=== PATIENT | male | born 1965 | race Caucasian/White ===

== ENCOUNTER → 2018-03-26 | Outpatient (CLI) | payer OTHER ==
[~2018-03-26] MED LIST: AZIT600 PO; DIPH25TA28 PO; GLUCTAB PO; GUAI600; LEVEMIR SC; LISI-363 PO; LORTA5 PO; NOVOLOGSS; PRAV20TA67 PO; ST JTAB PO
[2018-03-26 09:48] LABS: AUTOMATED NEUTROPHIL # 7.1 TH/MM3 (1.8-7.7); BASOPHIL # 0.1 TH/MM3 (0-0.2); BASOPHIL % 0.7 % (0.0-2.0); EOSINOPHIL # 0.2 TH/MM3 (0-0.4); EOSINOPHIL % 2.3 % (0.0-4.0); HEMATOCRIT 52.9 % (39.0-51.0); HEMOGLOBIN 18.3 GM/DL (13.0-17.0); LYMPH % 23.8 % (9.0-44.0); LYMPHOCYTE # 2.5 TH/MM3 (1.0-4.8); MEAN CORPUSCULAR HEMOGLOBIN 30.4 PG (27.0-34.0); MEAN CORPUSCULAR HGB CONC 34.5 % (32.0-36.0); MEAN PLATELET VOLUME 7.5 FL (7.0-11.0); MONO % 6.8 % (0.0-8.0); MONOCYTE # 0.7 TH/MM3 (0-0.9); NEUT % 66.4 % (16.0-70.0); PLATELET COUNT 247 TH/MM3 (150-450); RED BLOOD COUNT 6.01 MIL/MM3 (4.50-5.90); RED CELL DISTRIBUTION WIDTH 13.8 % (11.6-17.2); WHITE BLOOD COUNT 10.6 TH/MM3 (4.0-11.0)
[2018-03-26 09:58] LABS: BICARBONATE 19.8 MEQ/L (21.0-32.0); CALCIUM 8.9 MG/DL (8.5-10.1); CREATININE 1.1 MG/DL (0.60-1.30)
--- NOTE | 2018-03-26 15:22 | EKG ---
Date Performed: 03/26/2018 Time Performed: 09:30:14 PTAGE: 52 years EKG: Sinus rhythm . Rightward axis Since the previous tracing, no significant change noted Borderline ECG PREVIOUS TRACING : 12/01/2013 07.08 DOCTOR: Pamela Jacobsen Interpretating Date/Time 03/26/2018 15:21:50
== END ==
LOC: CLAB 08:29
PROVIDERS: ATTEND Orthopaedic Surgery Sports Medicine
DX: Z01.818 Encounter for other preprocedural examination (principal); G56.03 Carpal tunnel syndrome, bilateral upper limbs; R94.31 Abnormal electrocardiogram [ECG] [EKG]
CPT/HCPCS: 36415; 80048; 85025; 93005

== ENCOUNTER 2018-07-30 13:39 | Observation (INO) ==
--- NOTE | 2018-07-30 16:09 | ED ---
HPI General Chief Complaint: Chest Pain Stated Complaint: Multiple Complaints Time Seen by Provider: 07/30/18 15:32 Source: patient Mode of arrival: ambulatory Limitations: no limitations History of Present Illness HPI narrative: 52-year-old male with a history of diabetes mellitus type 2, chronic chest pain presents to the emergency department with chronic chest pain , occasional dizziness, diaphoresis that has worsened in the last 3-4 days. He describes his dizziness as lightheadedness that increases with moving and decreases with sitting. He currently denies shortness of breath although occasionally does feel short of breath with his chronic chest pain. Denies nausea, vomiting or diarrhea. Patient states he had a nuclear stress test, echocardiogram 2016 but does not know the results. He had a heart catheterization 10 years ago. Is not currently follow cardiology. Patient admits to smoking tobacco but denies hyperlipidemia hypertension. No known family history of cardiac problems. He does not take aspirin on a daily basis. Related Data Home Medications Medication Instructions Recorded Confirmed glipizide 07/30/18 hydrocodone-acetaminophen 1 tab PO Q4H PRN 07/30/18 07/30/18 Allergies Allergy/AdvReac Type Severity Reaction Status Date / Time No Known Allergies Allergy Verified 07/30/18 16:26 Review of Systems ROS: all other systems reviewed are negative [facility] Medical History Medical History Arthritis (Acute) Chronic back pain (Acute) Diabetes mellitus (Acute) Social History Social History Substance History: No History of Abuse Second Hand Smoke Exposure: No Smoking Status: Current every day smoker Tobacco Type: Cigarettes How Often Do You Have a Drink Containing Alcohol: 2 to 3 times a week Recent Travel in [facility] within the Last 8 Weeks: No Recent Out of Country Travel within the Last 8 Weeks: No Exam Narrative Exam Narrative: GENERAL: WD, WN in NAD SKIN: Focused skin assessment warm/dry. HEAD: Atraumatic. Normocephalic. EYES: Pupils equal and round. No scleral icterus. No injection or drainage. ENT: No nasal bleeding or discharge. Mucous membranes pink and moist. NECK: Trachea midline. No JVD. CARDIOVASCULAR: Regular rate and rhythm. No murmur appreciated. No TTP to chest wall. RESPIRATORY: No accessory muscle use. Clear to auscultation. Breath sounds equal bilaterally. GASTROINTESTINAL: Abdomen soft, non-tender, nondistended. Hepatic and splenic margins not palpable. MUSCULOSKELETAL: No obvious deformities. No clubbing. No cyanosis. No edema. No tenderness palpation of the calves NEUROLOGICAL: Awake and alert. No obvious cranial nerve deficits. Motor grossly within normal limits. Normal speech. PSYCHIATRIC: Appropriate mood and affect; insight and judgment normal. Course Initial Documented Vital Signs Temperature 99.0 F 07/30/18 13:43 Pulse Rate 75 07/30/18 13:43 Respiratory Rate 14 07/30/18 13:43 Blood Pressure 178/79 H 07/30/18 13:43 Pulse Oximetry 98 07/30/18 13:43 Last Documented Vital Signs Temperature 83 F L 07/30/18 20:00 Pulse Rate 98 H 07/30/18 20:00 Respiratory Rate 18 07/30/18 20:00 Blood Pressure 174/93 H 07/30/18 20:00 Pulse Oximetry 99 07/30/18 20:00 Clinical Decision Support HEART Score Questions History: Slightly suspicious EKG: Normal Age: 45-64 years Risk Factors: 3 or more Risk Factors or Hx of Atherosclerotic Disease Initial Troponin: Normal Limit Heart Score HEART Score: 3 Medical Decision Making [facility] Narrative Medical decision making narrative: 52-year-old male presents to the emergency department for evaluation of chest pain, general fatigue has been present for several days. Vital signs are stable. EKG demonstrates sinus rhythm without STEMI changes. Aspirin and nitro administered. Nitro has given patient relief from his pain. Labs are stable. Initial troponin and CK negative. Unfortunately, I do not have records from [facility] regarding this patient's workup for ACS rule out. Based off of history and physical, will admit patient to the chest pain center, r/o ACS. Medical Screen Exam Complete: Yes Emergency Medical Condition: Yes Differential Diagnosis Differential Diagnosis: ACS, atypical chest pain , angina Lab Data Result diagrams: 07/30/18 15:21 07/30/18 15:21 Lab Results 07/30/18 07/30/18 07/30/18 Range/Units 15:21 15:21 15:21 WBC 9.2 (4.0-11.0) th/mm3 RBC 4.93 (4.50-5.90) mil/mm3 Hgb 16.3 (13.0-17.0) gm/dL Hct 45.1 (39.0-51.0) % MCV 91.4 (80.0-100.0) fL MCH 33.1 (27.0-34.0) pg MCHC 36.2 H (32.0-36.0) % RDW 13.4 (11.6-17.2) % Plt Count 226 (150-450) th/mm3 MPV 7.1 (7.0-11.0) fL Prelim Diff (Auto) Slide review pending Neut % (Auto) 49.2 (16.0-70.0) % Lymph % (Auto) 36.6 (9.0-44.0) % [place] % (Auto) 9.2 H (0.0-8.0) % Eos % (Auto) 3.9 (0.0-4.0) % Baso % (Auto) 1.1 (0.0-2.0) % Neut # (Auto) 4.5 (1.8-7.7) th/mm3 Lymph # (Auto) 3.4 (1.0-4.8) th/mm3 [place] # (Auto) 0.8 (0.0-0.9) th/mm3 Eos # (Auto) 0.4 (0.0-0.4) th/mm3 Baso # (Auto) 0.1 (0.0-0.2) th/mm3 WBC Differential . Diff Scan Auto diff confirmed Differential Comment . PT 9.8 (9.8-11.6) sec INR 1.0 Ratio APTT 26.1 (24.3-30.1) sec Sodium 142 (136-145) meq/L Potassium 4.0 (3.5-5.1) meq/L Chloride 105 (98-107) meq/L Carbon Dioxide 25.0 (21.0-32.0) meq/L Anion Gap 12 (5-15) meq/L BUN 23 H (7-18) mg/dL Creatinine 1.21 (0.60-1.30) mg/dL Estimated GFR 62 L (>89) mL/min Random Glucose 149 H (74-106) mg/dL Calcium 8.6 (8.5-10.1) mg/dL Total Bilirubin 0.5 (0.2-1.0) mg/dL AST 18 (15-37) U/L ALT 29 (12-78) U/L Alkaline Phosphatase 101 (45-117) U/L Total Creatine Kinase 296 (39-308) U/L CK-MB (CK-2) 2.2 (0.5-3.6) ng/mL Troponin I Less than 0.02 L (0.02-0.05) ng/mL Total Protein 7.6 (6.4-8.2) g/dL Albumin 4.1 (3.4-5.0) g/dL 07/30/18 Range/Units 19:15 WBC (4.0-11.0) th/mm3 RBC (4.50-5.90) mil/mm3 Hgb (13.0-17.0) gm/dL Hct (39.0-51.0) % MCV (80.0-100.0) fL MCH (27.0-34.0) pg MCHC (32.0-36.0) % RDW (11.6-17.2) % Plt Count (150-450) th/mm3 MPV (7.0-11.0) fL Prelim Diff (Auto) Neut % (Auto) (16.0-70.0) % Lymph % (Auto) (9.0-44.0) % [place] % (Auto) (0.0-8.0) % Eos % (Auto) (0.0-4.0) % Baso % (Auto) (0.0-2.0) % Neut # (Auto) (1.8-7.7) th/mm3 Lymph # (Auto) (1.0-4.8) th/mm3 [place] # (Auto) (0.0-0.9) th/mm3 Eos # (Auto) (0.0-0.4) th/mm3 Baso # (Auto) (0.0-0.2) th/mm3 WBC Differential Diff Scan Differential Comment PT (9.8-11.6) sec INR Ratio APTT (24.3-30.1) sec Sodium (136-145) meq/L Potassium (3.5-5.1) meq/L Chloride (98-107) meq/L Carbon Dioxide (21.0-32.0) meq/L Anion Gap (5-15) meq/L BUN (7-18) mg/dL Creatinine (0.60-1.30) mg/dL Estimated GFR (>89) mL/min Random Glucose (74-106) mg/dL Calcium (8.5-10.1) mg/dL Total Bilirubin (0.2-1.0) mg/dL AST (15-37) U/L ALT (12-78) U/L Alkaline Phosphatase (45-117) U/L Total Creatine Kinase 244 (39-308) U/L CK-MB (CK-2) (0.5-3.6) ng/mL Troponin I Less than 0.02 L (0.02-0.05) ng/mL Total Protein (6.4-8.2) g/dL Albumin (3.4-5.0) g/dL Imaging Data Radiologist's impression: Chest X-Ray 07/30/18 15:49 CONCLUSION: 1. No acute cardiopulmonary disease. Discharge Plan Discharge Disposition Patient Disposition: 30 Still Patient Discharge Condition Condition: Stable Discharge Details Diagnosis: Atypical chest pain Physicians Team ED Provider: Blayne Wills ED Midlevel Provider: Sharmila Anton Primary Care Provider: Malathi Rendon Attending Provider: Arash Aguirre Status ED Status: Left Department Discharge Information Discharge Date/Time: 07/30/18 17:54
[2018-07-30 16:12] LABS: Baso # (Auto) 0.1 th/mm3 (0.0-0.2); Baso % (Auto) 1.1 % (0.0-2.0); Eos # (Auto) 0.4 th/mm3 (0.0-0.4); Eos % (Auto) 3.9 % (0.0-4.0); Hematocrit 45.1 % (39.0-51.0); Hemoglobin 16.3 gm/dL (13.0-17.0); Lymph # (Auto) 3.4 th/mm3 (1.0-4.8); Lymph % (Auto) 36.6 % (9.0-44.0); Mean Corpuscular Hemoglobin 33.1 pg (27.0-34.0); Mean Corpuscular Volume 91.4 fL (80.0-100.0); Mean Platelet Volume 7.1 fL (7.0-11.0); Mono # (Auto) 0.8 th/mm3 (0.0-0.9); Mono % (Auto) 9.2 % (0.0-8.0); Neut # (Auto) 4.5 th/mm3 (1.8-7.7); Neut % (Auto) 49.2 % (16.0-70.0); Platelet Count 226 th/mm3 (150-450); Red Blood Count 4.93 mil/mm3 (4.50-5.90); Red Cell Distribution Width 13.4 % (11.6-17.2); White Blood Count 9.2 th/mm3 (4.0-11.0)
[2018-07-30 16:15] LABS: Mean Corpuscular HGB Conc 36.2 % (32.0-36.0)
--- NOTE | 2018-07-30 16:24 | XR ---
EXAM DATE: 07/30/2018 3:49 PM EDT AGE/SEX: 52 years / Male INDICATIONS: Left sided chest pain. CLINICAL DATA: This is the patient's initial encounter. Patient reports that signs and symptoms have been present for 2 days and indicates a pain score of 6/10. MEDICAL/SURGICAL HISTORY: None. None. COMPARISON: [facility], CT CHEST W/O CONTRAST, 01/23/2018. . FINDINGS: A single AP view of the chest demonstrates the lungs to be symmetrically aerated without evidence of mass, infiltrate or effusion. The cardiomediastinal contours are unremarkable. Osseous structures a re intact. CONCLUSION: 1. No acute cardiopulmonary disease. Electronically signed by: Jameson Weber MD 07/30/2018 4:22 PM EDT
[2018-07-30 16:27] LABS: Activated Partial Thrombo Time 26.1 sec (24.3-30.1); Prothrombin Time 9.8 sec (9.8-11.6)
[2018-07-30 16:32] LABS: Albumin 4.1 g/dL (3.4-5.0); Anion Gap 12 meq/L (5-15); Aspartate Aminotransferase 18 U/L (15-37); Blood Urea Nitrogen 23 mg/dL (7-18); Calcium 8.6 mg/dL (8.5-10.1); Chloride 105 meq/L (98-107); Glomerular Filtration Rate 62 mL/min (>89); Glucose,Random 149 mg/dL (74-106); Sodium 142 meq/L (136-145)
[2018-07-30 16:36] LABS: Alanine Aminotransferase 29 U/L (12-78); Alkaline Phosphatase 101 U/L (45-117); Creatine Kinase 296 U/L (39-308); Total Protein 7.6 g/dL (6.4-8.2)
[2018-07-30 16:49] LABS: Creatine Kinase MB 2.2 ng/mL (0.5-3.6)
[2018-07-30] MEDS ORDERED: Acetaminophen 500 MG Tablet PO PRN (16:52)
[2018-07-30 20:00] LABS: Creatine Kinase 244 U/L (39-308)
[2018-07-30] MEDS: Morphine Sulfate Inj 2 MG/ML Vial IV.PUSH PRN (23:13)
[2018-07-31] MEDS: Morphine Sulfate Inj 2 MG/ML Vial IV.PUSH PRN (03:21)
--- NOTE | 2018-07-31 10:46 | P.HPCA ---
History of Present Illness Primary Care Physician: Malathi Rendon Chief Complaint: Chest pain History of Present Illness: This is a 52-year-old male with history of diabetes, hyperlipidemia, tobacco abuse, and obesity that presents to ED after request of a physician at the clinic for further evaluation. He states that for last 2 days he has been sweating a lot. Regardless of if he is outside or if he is inside. 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 Was advised by his coworker to get checked out by the nurse for the city. He went to the nurse and was then advised to go to the wellness center. While he was there he states that he was told that his blood pressure dropped more than 30 points when he went from a seated to standing position. At that point they stated he should go to the hospital. States that he was having chest pain on and off yesterday. States is not unusual. States he has chronic chest pain and has had this for more than 10 years. Usually has 3-4 episodes a month. Yesterday's episodes were intermittent each lasting less than 10 minutes but occurred 3-4 times. States that he has had this evaluated in the past. States he had a normal cardiac catheterization at [facility] about 10 years ago. He also states that he had a normal nuclear stress test sometime last year with [facility]. States he really was not concerned about his chest pain. Was more concerned about why he was sweating but again was prompted to come to the ED because his blood pressure changes. Denies history of hypertension. He was on lisinopril when he was first diagnosed with diabetes while hospitalized but states his PCP took him off lisinopril stating he was needed for his blood pressure. Currently has no complaints. Diabetes, hyperlipidemia, tobacco abuse, obesity. Denies hypertension and known CAD. Patient smokes about 1 pack of cigarettes daily for 40 years. Denies alcohol or illicit drug use. Denies family history of CAD. - Diagnosis (1) Chest pain (2) Diabetes (3) Hyperlipidemia (4) Obesity (5) Tobacco abuse Review of Systems General: Patient denies fevers, chills, and recent travel. HEENT: Patient denies headache, sore throat, difficulty swallowing. Cardiovascular: Has the chest discomfort as mentioned above. Denies sensation of heart beating rapidly or irregularly. No syncope. States he was sweating a lot. Respiratory: Denies shortness of breath or inspirational chest discomfort. Denies coughing wheezing or hemoptysis. GI: Patient denies nausea, vomiting, diarrhea, abdominal pain, bloody stools. Musculoskeletal: Patient denies joint pain or edema. Denies calf pain or edema. Neurovascular: Patient denies numbness, tingling, weakness in extremities. Denies headache. Endocrine: Denies polyuria and polydipsia. Hematologic: Denies easy bruising. Skin: Denies rash or itching. PMFSH - History History Provided By: Patient - Medical History Medical History: Medical History (Last Updated 07/30/18 @ 16:23 by Portia Booker RN) Arthritis Chronic back pain Diabetes mellitus - Tobacco History Second Hand Smoke Exposure: No Tobacco Use In Past 30 Days: Yes Smoking Status: Current every day smoker Tobacco Type: Cigarettes - Alcohol History How Often Do You Have a Drink Containing Alcohol: 2 to 3 times a week - Substance Use History Substance History: No History of Abuse - Substance Use Type Marijuana Status: Active Route Used: Inhalation - Travel History Recent Travel in the [place] Within the Last 8 Weeks: No Recent Travel Out of the Country Within the Last 8 Weeks: No - Immunization History Tetanus Immunization: >5 Years Medications and Allergies Active Medications: Active Medications Acetaminophen (Tylenol) 500 mg PO Q4H PRN PRN Reason: HEADACHE Hydrocodone Bitart/Acetaminophen ([place] 7.5/325) 1 tab PO Q4H PRN PRN Reason: PAIN SCALE 1 TO 7 Last Admin: 07/31/18 08:36 Dose: 1 tab Insulin Human Regular (Novolin R Correctional Sugar Inj) 0 units SQ ACHS ANAYA; Protocol Morphine Sulfate (Morphine Inj) 2 mg IV.PUSH Q4H PRN PRN Reason: PAIN SCALE GREATER THAN 5 Last Admin: 07/31/18 03:21 Dose: 2 mg Ondansetron HCl (Zofran Inj) 4 mg IV.PUSH Q6H PRN PRN Reason: NAUSEA Sodium Chloride (Ns Flush) 2 ml IV.FLUSH UNSCH PRN PRN Reason: FLUSH AFTER USING IV ACCESS Sodium Chloride (Ns Flush) 2 ml IV.FLUSH BID ANAYA Last Admin: 07/31/18 08:36 Dose: 2 ml Sodium Chloride (Ns Flush) 2 ml IV.FLUSH PRN PRN PRN Reason: FLUSH AFTER USING IV ACCESS Allergies Allergy/AdvReac Type Severity Reaction Status Date / Time No Known Allergies Allergy Verified 07/30/18 16:26 Home Medications Medication Instructions Recorded Confirmed Type glipizide 07/30/18 History hydrocodone-acetaminophen 1 tab PO Q4H PRN 07/30/18 07/30/18 History Exam Vital signs: Vital Signs 07/30/18 13:43 07/30/18 16:22 07/30/18 18:29 Temperature 99.0 F 98.1 F Pulse Rate 75 57 L 58 L Respiratory Rate 14 18 16 Blood Pressure 178/79 H 138/75 181/85 H Pulse Oximetry 98 99 99 07/30/18 20:00 07/30/18 23:44 07/31/18 03:10 Temperature 83 F L 98.4 F 98.2 F Pulse Rate 75 63 62 Respiratory Rate 18 18 20 Blood Pressure 174/93 H 135/73 133/65 Pulse Oximetry 99 96 97 07/31/18 08:00 07/31/18 09:21 07/31/18 09:22 Temperature 97.7 F Pulse Rate 52 L 56 L 72 Respiratory Rate 18 16 18 Blood Pressure 174/84 H 175/86 H 162/78 H Pulse Oximetry 98 95 98 07/31/18 09:23 Temperature Pulse Rate 74 Respiratory Rate 18 Blood Pressure 163/84 H Pulse Oximetry 97 Intake & Output 07/30/18 07/31/18 07/31/18 18:59 06:59 18:59 Weight 142.882 kg 142.882 kg Other: # Voids 3 Date of Last Bowel Movement 07/29/18 Weight On Admission 142.882 kg Narrative: GENERAL: This is a well-nourished, well-developed patient, in no apparent distress. Patient speaks in clear complete sentences. Patient is pleasant. HEENT: Head is atraumatic and normocephalic. Neck is supple without lymphadenopathy and trachea is midline. No JVD or carotid bruits. CARDIOVASCULAR: Regular rate and rhythm without murmurs, gallops, or rubs. RESPIRATORY: Clear to auscultation. Breath sounds equal bilaterally. No wheezes , rales, or rhonchi. Chest wall is nontender. No use of accessory muscles. GASTROINTESTINAL: Abdomen is nontender, nondistended. Abdomen soft. No obvious pulsatile mass or bruit. No CVA tenderness. Strong femoral pulses bilaterally. Normal bowel sounds in all quadrants. MUSCULOSKELETAL: Patient is moving upper and lower extremities freely. No calf tenderness or edema, no Homans sign. Strong pulses in upper and lower extremities. NEUROLOGICAL: Patient is alert and oriented. Cranial nerves 2-12 are grossly intact. No focal deficits and speech is clear. SKIN: No rash and turgor is normal. Results 07/30/18 15:21 07/30/18 15:21 Cardiac Enzymes 07/30/18 07/30/18 07/30/18 Range/Units 15:21 19:15 22:00 AST 18 (15-37) U/L CK-MB (CK-2) 2.2 (0.5-3.6) ng/mL Troponin I Less than 0.02 L Less than 0.02 L Less than 0.02 L (0.02-0.05) ng/mL Coagulation 07/30/18 Range/Units 15:21 PT 9.8 (9.8-11.6) sec APTT 26.1 (24.3-30.1) sec CBC 07/30/18 Range/Units 15:21 WBC 9.2 (4.0-11.0) th/mm3 RBC 4.93 (4.50-5.90) mil/mm3 Hgb 16.3 (13.0-17.0) gm/dL Hct 45.1 (39.0-51.0) % Plt Count 226 (150-450) th/mm3 Neut # (Auto) 4.5 (1.8-7.7) th/mm3 Lymph # (Auto) 3.4 (1.0-4.8) th/mm3 [place] # (Auto) 0.8 (0.0-0.9) th/mm3 Eos # (Auto) 0.4 (0.0-0.4) th/mm3 Baso # (Auto) 0.1 (0.0-0.2) th/mm3 Comprehensive Metabolic Panel 07/30/18 Range/Units 15:21 Sodium 142 (136-145) meq/L Potassium 4.0 (3.5-5.1) meq/L Chloride 105 (98-107) meq/L Carbon Dioxide 25.0 (21.0-32.0) meq/L BUN 23 H (7-18) mg/dL Creatinine 1.21 (0.60-1.30) mg/dL Calcium 8.6 (8.5-10.1) mg/dL AST 18 (15-37) U/L ALT 29 (12-78) U/L Alkaline Phosphatase 101 (45-117) U/L Total Protein 7.6 (6.4-8.2) g/dL Albumin 4.1 (3.4-5.0) g/dL Intake and Output 07/30/18 07/31/18 07/31/18 22:59 06:59 14:59 Other: # Voids 3 Date of Last Bowel Movement 07/29/18 Weight 142.882 kg 142.882 kg Weight On Admission 142.882 kg - Imaging and Cardiology Imaging: Impressions Chest X-Ray 07/30/18 15:49 CONCLUSION: 1. No acute cardiopulmonary disease. EKG interpretations - EKG EKG shows: sinus rhythm (EKGs are sinus rhythm without significant ST segment depressions or elevations.) Caprini VTE Risk Assessment Caprini VTE Risk Assessment: No/Low Risk (score <= 1) Caprini Risk Assessment Model: Point Value = 1 Point Value = 2 Point Value = 3 Point Value = 5 Age 41-60 Minor surgery BMI > 25 kg/m2 Swollen legs Varicose veins or History of unexplained or recurrent spontaneous Oral contraceptives or hormone replacement Sepsis (< 1 month) Serious lung disease, including pneumonia (< 1 month) Abnormal pulmonary function Acute myocardial infarction Congestive heart failure (< 1 month) History of inflammatory bowel disease Medical patient at bed rest Age 61-74 Arthroscopic surgery Major open surgery (> 45 min) Laparoscopic surgery (> 45 min) Malignancy Confined to bed (> 72 hours) Immobilizing plaster cast Central venous access Age >= 75 History of VTE Family history of VTE Factor V Leiden Prothrombin [id number] Lupus anticoagulant Anticardiolipin antibodies Elevated serum homocysteine Heparin-induced thrombocytopenia Other congenital or acquired thrombophilia Stroke (< 1 month) Elective arthroplasty Hip, pelvis, or leg fracture Acute spinal cord injury (< 1 month) Prophylaxis Regimen: Total Risk Factor Score Risk Level Prophylaxis Regimen 0-1 Low Early ambulation 2 Moderate Order ONE of the following: *Sequential Compression Device (SCD) *Heparin 5000 units SQ BID 3-4 Higher Order ONE of the following medications: *Heparin 5000 units SQ TID *Enoxaparin/Lovenox 40 mg SQ daily (WT < 150 kg, CrCl > 30 mL/min) *Enoxaparin/Lovenox 30 mg SQ daily (WT < 150 kg, CrCl > 10-29 mL/min) *Enoxaparin/Lovenox 30 mg SQ BID (WT < 150 kg, CrCl > 30 mL/min) AND/OR *Sequential Compression Device (SCD) 5 or more Highest Order ONE of the following medications: *Heparin 5000 units SQ TID (Preferred with Epidurals) *Enoxaparin/Lovenox 40 mg SQ daily (WT < 150 kg, CrCl > 30 mL/min) *Enoxaparin/Lovenox 30 mg SQ daily (WT < 150 kg, CrCl > 10-29 mL/min) *Enoxaparin/Lovenox 30 mg SQ BID (WT < 150 kg, CrCl > 30 mL/min) AND *Sequential Compression Device (SCD) Assessment and Plan - Assessment (1) Chest pain Code(s): R07.9 - Chest pain, unspecified Status: Acute (2) Diabetes Code(s): E11.9 - Type 2 diabetes mellitus without complications Status: Acute (3) Hyperlipidemia Code(s): E78.5 - Hyperlipidemia, unspecified Status: Acute (4) Obesity Code(s): E66.9 - Obesity, unspecified Status: Acute (5) Tobacco abuse Code(s): Z72.0 - Tobacco use Status: Acute - Plan * Chest pain: Patient symptoms seem atypical. Patient had a nonischemic nuclear stress test August 2017. He was seen by Dr. Aguirre of cardiology and chest pain center. No further cardiac workup at this time. He should follow- up with his physician. Return to ED for interval issues. * Diabetes: Sliding scale coverage while in chest pain center. Resume medication at discharge. He needs to further discuss with his PCP being on DAXA inhibitor for kidney protection with his history of diabetes. There may be another reason that he was taken off the medication so he needs to further discuss this. * Hyperlipidemia: Continue his medication. * Tobacco abuse: Patient counseled on importance of smoking cessation. * Obesity: Patient counseled importance of diet, exercise, weight loss. Patient is stable at this time. He is agreeable to this plan. H&P: Quality - VTE Deep Vein Thrombosis/Pulmonary Embolism Present on Admission: No
--- NOTE | 2018-07-31 10:57 | P.PNCA ---
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 The history is as dictated however additionally would point out that the patient upon detailed questioning is very noncompliant with his diabetes both in terms of diet and testing. He had last eaten at 10:00 the night prior to his presentation and subsequently had no breakfast or lunch. He was seen and evaluated by the [facility] nurse for his heavy sweating and at the time of her evaluation had a glucose of 178 more than 12 hours after eating. He has previously had documented glucoses in the 300-400 range and was probably in this range prior to this current episode. He also indicates that he has been under considerable stress. Since presentation to the emergency room he has been stable with no further no further complaints. There was also a question of some orthostasis but this also has been checked and no orthostasis is documented. Medications and Allergies Active Medications: Active Medications Acetaminophen (Tylenol) 500 mg PO Q4H PRN PRN Reason: HEADACHE Hydrocodone Bitart/Acetaminophen ([place] 7.5/325) 1 tab PO Q4H PRN PRN Reason: PAIN SCALE 1 TO 7 Last Admin: 07/31/18 08:36 Dose: 1 tab Insulin Human Regular (Novolin R Correctional Sugar Inj) 0 units SQ ACHS ANAYA; Protocol Morphine Sulfate (Morphine Inj) 2 mg IV.PUSH Q4H PRN PRN Reason: PAIN SCALE GREATER THAN 5 Last Admin: 07/31/18 03:21 Dose: 2 mg Ondansetron HCl (Zofran Inj) 4 mg IV.PUSH Q6H PRN PRN Reason: NAUSEA Sodium Chloride (Ns Flush) 2 ml IV.FLUSH UNSCH PRN PRN Reason: FLUSH AFTER USING IV ACCESS Sodium Chloride (Ns Flush) 2 ml IV.FLUSH BID ANAYA Last Admin: 07/31/18 08:36 Dose: 2 ml Sodium Chloride (Ns Flush) 2 ml IV.FLUSH PRN PRN PRN Reason: FLUSH AFTER USING IV ACCESS Allergies Allergy/AdvReac Type Severity Reaction Status Date / Time No Known Allergies Allergy Verified 07/30/18 16:26 Home Medications Medication Instructions Recorded Confirmed Type glipizide 07/30/18 History hydrocodone-acetaminophen 1 tab PO Q4H PRN 07/30/18 07/30/18 History Physical Exam Vital signs: Vital Signs 07/30/18 13:43 07/30/18 16:22 07/30/18 18:29 Temperature 99.0 F 98.1 F Pulse Rate 75 57 L 58 L Respiratory Rate 14 18 16 Blood Pressure 178/79 H 138/75 181/85 H Pulse Oximetry 98 99 99 07/30/18 20:00 07/30/18 23:44 07/31/18 03:10 Temperature 83 F L 98.4 F 98.2 F Pulse Rate 75 63 62 Respiratory Rate 18 18 20 Blood Pressure 174/93 H 135/73 133/65 Pulse Oximetry 99 96 97 07/31/18 08:00 07/31/18 09:21 07/31/18 09:22 Temperature 97.7 F Pulse Rate 52 L 56 L 72 Respiratory Rate 18 16 18 Blood Pressure 174/84 H 175/86 H 162/78 H Pulse Oximetry 98 95 98 07/31/18 09:23 Temperature Pulse Rate 74 Respiratory Rate 18 Blood Pressure 163/84 H Pulse Oximetry 97 Intake & Output 07/30/18 07/31/18 07/31/18 18:59 06:59 18:59 Weight 142.882 kg 142.882 kg Other: # Voids 3 Date of Last Bowel Movement 07/29/18 Weight On Admission 142.882 kg Narrative: Significantly obese 52-year-old man with multiple tattoos Neck supple no JVD masses nodes or bruits Chest clear to auscultation no rales wheezes or rhonchi Cardiovascular regular sinus rhythm with no gallops rubs or murmurs Abdomen obese soft nontender Extremities 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 otherwise unremarkable Results 07/30/18 15:21 07/30/18 15:21 Cardiac Enzymes 07/30/18 07/30/18 07/30/18 Range/Units 15:21 19:15 22:00 AST 18 (15-37) U/L CK-MB (CK-2) 2.2 (0.5-3.6) ng/mL Troponin I Less than 0.02 L Less than 0.02 L Less than 0.02 L (0.02-0.05) ng/mL Coagulation 07/30/18 Range/Units 15:21 PT 9.8 (9.8-11.6) sec APTT 26.1 (24.3-30.1) sec CBC 07/30/18 Range/Units 15:21 WBC 9.2 (4.0-11.0) th/mm3 RBC 4.93 (4.50-5.90) mil/mm3 Hgb 16.3 (13.0-17.0) gm/dL Hct 45.1 (39.0-51.0) % Plt Count 226 (150-450) th/mm3 Neut # (Auto) 4.5 (1.8-7.7) th/mm3 Lymph # (Auto) 3.4 (1.0-4.8) th/mm3 [place] # (Auto) 0.8 (0.0-0.9) th/mm3 Eos # (Auto) 0.4 (0.0-0.4) th/mm3 Baso # (Auto) 0.1 (0.0-0.2) th/mm3 Comprehensive Metabolic Panel 07/30/18 Range/Units 15:21 Sodium 142 (136-145) meq/L Potassium 4.0 (3.5-5.1) meq/L Chloride 105 (98-107) meq/L Carbon Dioxide 25.0 (21.0-32.0) meq/L BUN 23 H (7-18) mg/dL Creatinine 1.21 (0.60-1.30) mg/dL Calcium 8.6 (8.5-10.1) mg/dL AST 18 (15-37) U/L ALT 29 (12-78) U/L Alkaline Phosphatase 101 (45-117) U/L Total Protein 7.6 (6.4-8.2) g/dL Albumin 4.1 (3.4-5.0) g/dL Intake and Output 07/30/18 07/31/18 07/31/18 22:59 06:59 14:59 Other: # Voids 3 Date of Last Bowel Movement 07/29/18 Weight 142.882 kg 142.882 kg Weight On Admission 142.882 kg - Imaging and Cardiology Imaging: Impressions Chest X-Ray 07/30/18 15:49 CONCLUSION: 1. No acute cardiopulmonary disease. Assessment and Plan - Assessment (1) Chest pain Code(s): R07.9 - Chest pain, unspecified Status: Acute Plan: Patient has ruled out using chest pain center protocol for ACS. He was last thoroughly evaluated with a nuclear stress test and echocardiogram approximately a year ago. His intermittent chest pain has been chronic over a significant period of time and shows no current significant change. His presentation with sweating and possible unstable blood pressure is more likely related to his very poor management of his diabetes. No further cardiovascular evaluation will be carried out at this time. He will be discharged to follow- up with his primary care physician Dr. Walker Rendon. He has been following with her on a monthly basis but has ceased doing so over the last number of months. Significant effort was made to have him recognize the importance of managing his diet medications and his diabetes at this time. (2) Diabetes Code(s): E11.9 - Type 2 diabetes mellitus without complications Status: Acute Plan: Discussed the long-term results of poorly managed diabetes in an effort to have him understand the importance of appropriate management at this time. He was further instructed regarding diet and also the need to follow-up with his primary care physician for intensive instruction and lifestyle modification. (3) Hyperlipidemia Code(s): E78.5 - Hyperlipidemia, unspecified Status: Acute (4) Obesity Code(s): E66.9 - Obesity, unspecified Status: Acute Plan: Was emphasized to the patient the importance of significant weight reduction to assist with his long-term management of diabetes and overall functional capacity. (5) Tobacco abuse Code(s): Z72.0 - Tobacco use Status: Acute - Plan * Chest pain: Patient symptoms seem atypical. Patient had a nonischemic nuclear stress test August 2017. He was seen by Dr. Aguirre of cardiology and chest pain center. No further cardiac workup at this time. He should follow- up with his physician. Return to ED for interval issues. * Diabetes: Sliding scale coverage while in chest pain center. Resume medication at discharge. He needs to further discuss with his PCP being on DAXA inhibitor for kidney protection with his history of diabetes. There may be another reason that he was taken off the medication so he needs to further discuss this. * Hyperlipidemia: Continue his medication. * Tobacco abuse: Patient counseled on importance of smoking cessation. * Obesity: Patient counseled importance of diet, exercise, weight loss. Patient is stable at this time. He is agreeable to this plan.
--- NOTE | 2018-07-31 11:06 | ECG ---
Date Performed: 07/30/2018 Time Performed: 21:45:11 PTAGE: 52 years EKG: Sinus rhythm BORDERLINE RIGHT AXIS DEVIATION BORDERLINE ECG No significant change PREVIOUS TRACING : 07/30/2018 18.54 DOCTOR: Arash Aguirre Interpretating Date/Time 07/31/2018 11:05:05
--- NOTE | 2018-07-31 11:07 | ECG ---
Date Performed: 07/30/2018 Time Performed: 13:58:27 PTAGE: 52 years EKG: Sinus rhythm WITH SINUS ARRHYTHMIA NORMAL ECG PREVIOUS TRACING : 03/26/2018 09.30 DOCTOR: Arash Aguirre Interpretating Date/Time 07/31/2018 11:06:44
--- NOTE | 2018-07-31 11:07 | ECG ---
Date Performed: 07/30/2018 Time Performed: 18:54:02 PTAGE: 52 years EKG: SINUS BRADYCARDIA BORDERLINE RIGHT AXIS DEVIATION BORDERLINE ECG INTERPRETATION BASED ON A DEFAULT AGE OF 40 YEARS No significant change PREVIOUS TRACING : 07/30/2018 13.58 DOCTOR: Arash Aguirre Interpretating Date/Time 07/31/2018 11:06:03
[2018-07-31] MEDS ORDERED: Insulin NovoLIN Regular Correctional Sugar Inj SQ SCH (12:00)
== END 2018-07-31 13:03 | disposition home or self-care (01) ==
LOC: NEDA 13:39 → NEPE 13:39 → NEDA 17:54 → NEPGCP 18:00
PROVIDERS: ADMIT Internal Medicine Interventional Cardiology; ATTEND Internal Medicine Interventional Cardiology